=== PATIENT | male | born 1960 | race Two or more races ===

== ENCOUNTER 2024-04-24 20:11 | Emergency (ER) | payer MEDICAID, SELFPAY ==
[2024-04-24 20:20] VITALS: PULSE 84; RESP 16; O2SAT 98; BMI 29.0
--- NOTE | 2024-04-24 20:30 | PC.NURSE ---
PT INFORMED HAROON RN AT TRIAGE THAT HE IS FEELING BETTER AND WILL LEAVE.
== END 2024-04-24 20:48 | disposition left against medical advice (07) ==
LOC: SERX 20:58
PROVIDERS: Emergency Provider Emergency Medicine
DX: Z53.21 Procedure and treatment not carried out due to patient leaving prior to being seen by health care provider (principal)